=== PATIENT | female | born 1965 | race Caucasian/White ===

== ENCOUNTER 2023-10-05 13:02 | Inpatient (IN) | payer MEDICARE, OTHER ==
[~2023-10-05] VITALS: Ht 162.6 cm; Wt 136.1 kg
[2023-10-05 14:09] LABS: BASOPHILS # (AUTO) 0.1 K/uL (0.0-0.2); BASOPHILS % (AUTO) 1.8 % (0.0-2.0); EOSINOPHILS % (AUTO) 0.9 % (0.0-6.0); HEMATOCRIT 38 % (33-45); HEMOGLOBIN 12.4 g/dL (11.5-14.8); LYMPHOCYTES # (AUTO) 1.6 K/uL (0.8-4.8); LYMPHOCYTES % (AUTO) 30.4 % (20.0-44.0); MEAN CORPUSCULAR HEMOGLOBIN 28 PG (26.0-33.0); MEAN CORPUSCULAR HGB CONC 33 g/dl (31.0-36.0); MEAN CORPUSCULAR VOLUME 84 fL (82-100); MONOCYTES # (AUTO) 0.4 K/uL (0.1-1.30); MONOCYTES % (AUTO) 7.1 % (2.0-12.0); NEUTROPHILS # (AUTO) 3.2 K/uL (1.8-8.9); NEUTROPHILS % (AUTO) 59.8 % (43.0-81.0); PLATELET COUNT (AUTO) 319 K/uL (150-450); RED BLOOD CELL COUNT(AUTO) 4.48 MIL/uL (4.0-5.2); RED CELL DISTRIBUTION WIDTH 15.7 % (11.5-15.0); WHITE BLOOD COUNT (AUTO) 5.3 K/uL (4.3-11.0)
[2023-10-05 14:18] LABS: CALCIUM, SERUM 9.3 mg/dL (8.5-10.1); CREATININE 0.9 mg/dL (0.6-1.3); POTASSIUM 4.1 mmol/L (3.5-5.1)
[2023-10-05] MEDS ORDERED: HYDR25TA4 PO (14:28)
[2023-10-05] MEDS ORDERED: CALC-771 PO (14:28)
[2023-10-05] MEDS ORDERED: GABA600T12 PO (14:28)
[2023-10-05] MEDS ORDERED: DOCU100C58 PO (14:28)
[2023-10-05] MEDS ORDERED: GABA-532 PO (14:28)
[2023-10-05] MEDS ORDERED: LISI40TA13 PO (14:28)
[2023-10-05] MEDS ORDERED: METF-440 PO (14:28)
[2023-10-05] MEDS ORDERED: ATOR40TA PO (14:28)
[2023-10-05 14:31] LABS: INR 0.99 (0.91-1.10); PARTIAL THROMBOPLASTIN TIME 25.8 SEC (24.3-34.3); PROTHROMBIN TIME 10.5 SECS (9.2-11.1)
[2023-10-05] MEDS ORDERED: ALBU18HF2 IH (14:45)
[2023-10-05] MEDS ORDERED: MAG HYDROX/AL HYDROX/SIMETH 30 ML UDC PO PRN (16:00)
[2023-10-05] MEDS ORDERED: MAGNESIUM HYDROXIDE 30 ML UDC PO PRN (16:00)
[2023-10-05] MEDS ORDERED: ONDANSETRON HCL/PF 4 MG/2 ML VIAL IVP PRN (16:00)
[2023-10-05] MEDS ORDERED: Z GUARD REMEDY 4 OZ OINT TP PRN (16:00)
[2023-10-05] MEDS ORDERED: DEXTROSE 50%-WATER 50 ML DISP.SYRIN IV PRN (16:00)
[2023-10-05 16:32] VITALS: BP 161/106; TEMP 96.8; O2SAT 100
[2023-10-05] MEDS: GABAPENTIN 300 MG CAPSULE PO SCH (17:40)
[2023-10-05] MEDS: DOCUSATE SODIUM 100 MG CAPSULE PO SCH (17:40)
[2023-10-05] MEDS: BLOOD SUGAR DIAGNOSTIC 1 EACH STRIP VI SCH ×2 (17:40→21:34)
[2023-10-05] MEDS: INSULIN REGULAR, HUMAN 100 UNIT/ML 3 ML VIAL SQ PRN (17:41)
[2023-10-05 20:00] VITALS: BP 123/93; TEMP 98.2; O2SAT 98
[2023-10-05 20:03] LABS: APPEARANCE,URINE CLEAR (CLEAR); BILIRUBIN,URINE NEGATIVE (NEGATIVE); BLOOD, URINE TRACE-INTA Ery/uL (NEGATIVE); COLOR,URINE YELLOW (YELLOW); KETONES,URINE NEGATIVE (NEGATIVE); NITRITE, URINE NEGATIVE (NEGATIVE); PROTEIN,URINE NEGATIVE (NEGATIVE); UGLUCOSE NEGATIVE (NEGATIVE); UROBILINOGEN,URINE 0.2 EU/dL (0.2)
[2023-10-05 20:18] LABS: ADD URINE CULTURE NO; BACTERIA,URINE 1+ /HPF (None Seen); WBC,URINE 0-2 /HPF (0-3)
[2023-10-05 20:19] LABS: LEUKOCYTE ESTERASE ,URINE NEGATIVE (NEGATIVE)
[2023-10-06] MEDS: INSULIN REGULAR, HUMAN 100 UNIT/ML 3 ML VIAL SQ PRN (06:54)
[2023-10-06] MEDS: BLOOD SUGAR DIAGNOSTIC 1 EACH STRIP VI SCH ×4 (06:54→21:21)
[2023-10-06 07:10] LABS: BASOPHILS % (AUTO) 0.5 % (0.0-2.0); EOSINOPHILS # (AUTO) 0.1 K/uL (0.0-0.7); EOSINOPHILS % (AUTO) 1.5 % (0.0-6.0); HEMATOCRIT 34 % (33-45); HEMOGLOBIN 11.2 g/dL (11.5-14.8); LYMPHOCYTES # (AUTO) 2.3 K/uL (0.8-4.8); MEAN CORPUSCULAR HEMOGLOBIN 28 PG (26.0-33.0); MEAN CORPUSCULAR HGB CONC 33 g/dl (31.0-36.0); MEAN CORPUSCULAR VOLUME 84 fL (82-100); MONOCYTES # (AUTO) 0.4 K/uL (0.1-1.30); MONOCYTES % (AUTO) 7.4 % (2.0-12.0); NEUTROPHILS # (AUTO) 2.5 K/uL (1.8-8.9); NEUTROPHILS % (AUTO) 46.6 % (43.0-81.0); PLATELET COUNT (AUTO) 275 K/uL (150-450); RED BLOOD CELL COUNT(AUTO) 4.05 MIL/uL (4.0-5.2); RED CELL DISTRIBUTION WIDTH 15.6 % (11.5-15.0); WHITE BLOOD COUNT (AUTO) 5.3 K/uL (4.3-11.0)
[2023-10-06 07:26] LABS: ALBUMIN 2.9 g/dL (3.4-5.0); BILIRUBIN,TOTAL 0.3 mg/dL (0.2-1.0); CALCIUM, SERUM 8.9 mg/dL (8.5-10.1); CREATININE 0.9 mg/dL (0.6-1.3); PHOSPHORUS 3.4 mg/dL (2.5-4.9); POTASSIUM 3.5 mmol/L (3.5-5.1); TOTAL PROTEIN, SERUM 6.2 g/dL (6.4-8.2)
[2023-10-06 08:33] VITALS: BP 118/71; TEMP 98.1; O2SAT 97
[2023-10-06] MEDS ORDERED: GELATIN SPONGE,ABSORBABLE 1 EA SPONGE TP ONE (08:53)
[2023-10-06] MEDS ORDERED: ANESTHESIA TRAY IN PYXIS 1 EA TRAY MC ONE (08:53)
[2023-10-06] MEDS ORDERED: POLYMYXIN B SULFATE 500,000 UNITS ONE (08:53)
[2023-10-06] MEDS ORDERED: HEMOSTATIC MATRIX 8 ML 1 EACH PAD MC ONE (08:53)
[2023-10-06] MEDS ORDERED: GELATIN SPONGE,ABSORBABLE 1 SPONGE SPONGE TP ONE (08:54)
[2023-10-06] MEDS ORDERED: BUPIVACAINE 0.5 % PF 150 MG/30 ML VIAL ONE (08:54)
[2023-10-06] MEDS ORDERED: LIDOCAINE 1%-EPI 1:100,000 20 ML VIAL ONE (08:54)
[2023-10-06] MEDS ORDERED: CEFAZOLIN 1 GM ONE (08:54)
[2023-10-06] MEDS ORDERED: CELLULOSE,OXIDIZED 1 EACH EACH MC ONE (08:55)
[2023-10-06] MEDS ORDERED: CELLULOSE,OXIDIZED 1 EA PACK MC ONE (08:55)
[2023-10-06] MEDS ORDERED: THROMBIN (BOVINE) 5,000 UNITS VIAL TP ONE (08:55)
[2023-10-06] MEDS: DOCUSATE SODIUM 100 MG CAPSULE PO SCH ×2 (09:00→18:04)
[2023-10-06] MEDS: GABAPENTIN 300 MG CAPSULE PO SCH ×3 (09:00→18:05)
[2023-10-06] MEDS ORDERED: GABAPENTIN 100 MG CAPSULE PO SCH (09:00)
[2023-10-06] MEDS: LISINOPRIL (20MG) 20 MG TABLET PO SCH (09:00)
[2023-10-06] MEDS: HYDROCHLOROTHIAZIDE 25 MG TABLET PO SCH (09:00)
[2023-10-06] MEDS ORDERED: LIDOCAINE 5% OINT 35.44 GM TUBE ONE (10:24)
[2023-10-06] MEDS ORDERED: PANTOPRAZOLE 40 MG VIAL IV SCH (11:00)
[2023-10-06] MEDS ORDERED: DESFLURANE 240 ML BOTTLE IH ONE (11:12)
[2023-10-06] MEDS ORDERED: IOHEXOL 0 ML IV ONE (11:46)
[2023-10-06] MEDS ORDERED: LIDOCAINE 5% (PATCH) 1 EA PATCH TP ONE (12:15)
[2023-10-06] MEDS ORDERED: ONDANSETRON HCL/PF 4 MG/2 ML VIAL IV PRN (14:00)
[2023-10-06] MEDS ORDERED: HYDROMORPHONE 1 MG/1 ML DISP.SYRIN IV PRN ×2 (14:00)
[2023-10-06] MEDS ORDERED: METOCLOPRAMIDE HCL 10 MG/2 ML VIAL IV PRN (14:00)
[2023-10-06 14:49] VITALS: O2SAT 96
[2023-10-06] MEDS: ALBUTEROL FS 2.5 MG/3 ML VIAL.NEB NEB PRN ×2 (14:49→22:06)
[2023-10-06 14:58] VITALS: O2SAT 99
[2023-10-06 20:00] VITALS: BP 121/68; TEMP 98.1; O2SAT 100
[2023-10-06] MEDS: ANCEF 1 GM/50 ML D5W IV SCH ×2 (20:16)
[2023-10-06] MEDS: *INSULIN REGULAR(HUMULIN R)HUM 100 UNIT/ML VIAL SQ PRN (21:22)
[2023-10-06 22:07] VITALS: O2SAT 97
[2023-10-06 22:19] VITALS: O2SAT 99
[2023-10-07] MEDS: ANCEF 1 GM/50 ML D5W IV SCH ×4 (04:34→11:27)
[2023-10-07] MEDS: BLOOD SUGAR DIAGNOSTIC 1 EACH STRIP VI SCH ×4 (06:40→21:43)
[2023-10-07] MEDS: INSULIN REGULAR, HUMAN 100 UNIT/ML 3 ML VIAL SQ PRN (06:40)
[2023-10-07 07:27] LABS: BASOPHILS % (AUTO) 0.3 % (0.0-2.0); EOSINOPHILS # (AUTO) 0.1 K/uL (0.0-0.7); EOSINOPHILS % (AUTO) 0.8 % (0.0-6.0); HEMATOCRIT 32 % (33-45); HEMOGLOBIN 10.7 g/dL (11.5-14.8); LYMPHOCYTES # (AUTO) 1.3 K/uL (0.8-4.8); MEAN CORPUSCULAR HEMOGLOBIN 28 PG (26.0-33.0); MEAN CORPUSCULAR HGB CONC 33 g/dl (31.0-36.0); MEAN CORPUSCULAR VOLUME 84 fL (82-100); MONOCYTES # (AUTO) 0.4 K/uL (0.1-1.30); MONOCYTES % (AUTO) 5.9 % (2.0-12.0); NEUTROPHILS # (AUTO) 5.1 K/uL (1.8-8.9); PLATELET COUNT (AUTO) 266 K/uL (150-450); RED CELL DISTRIBUTION WIDTH 15.6 % (11.5-15.0); WHITE BLOOD COUNT (AUTO) 6.9 K/uL (4.3-11.0)
[2023-10-07 07:30] VITALS: BP 97/64; TEMP 98.8; O2SAT 97
[2023-10-07 07:57] LABS: CALCIUM, SERUM 8.8 mg/dL (8.5-10.1); CREATININE 0.9 mg/dL (0.6-1.3); POTASSIUM 3.7 mmol/L (3.5-5.1)
[2023-10-07] MEDS: DOCUSATE SODIUM 100 MG CAPSULE PO SCH ×2 (08:08→16:23)
[2023-10-07] MEDS: GABAPENTIN 300 MG CAPSULE PO SCH ×3 (08:09→16:23)
[2023-10-07] MEDS: LISINOPRIL (20MG) 20 MG TABLET PO SCH ×2 (09:00→09:13)
[2023-10-07] MEDS: HYDROCHLOROTHIAZIDE 25 MG TABLET PO SCH (09:12)
[2023-10-07] MEDS: PANTOPRAZOLE 40 MG TABLET.DR PO SCH (09:12)
[2023-10-07] MEDS ORDERED: ANESTHESIA TRAY IN PYXIS 1 EA TRAY MC ONE (12:14)
[2023-10-07 16:00] VITALS: BP 133/88; TEMP 98.6; O2SAT 98
[2023-10-07] MEDS: ACETAMINOPHEN 325 MG TABLET PO PRN ×2 (17:21→23:22)
[2023-10-07 20:33] VITALS: BP 142/99; TEMP 98.4; O2SAT 99
[2023-10-07] MEDS: *INSULIN REGULAR(HUMULIN R)HUM 100 UNIT/ML VIAL SQ PRN (21:43)
[2023-10-08] MEDS: BLOOD SUGAR DIAGNOSTIC 1 EACH STRIP VI SCH (07:38)
[2023-10-08] MEDS: ACETAMINOPHEN 325 MG TABLET PO PRN (08:10)
[2023-10-08] MEDS: GABAPENTIN 300 MG CAPSULE PO SCH (08:14)
[2023-10-08] MEDS: PANTOPRAZOLE 40 MG TABLET.DR PO SCH (08:14)
[2023-10-08] MEDS: DOCUSATE SODIUM 100 MG CAPSULE PO SCH (08:15)
[2023-10-08] MEDS: LISINOPRIL (20MG) 20 MG TABLET PO SCH (08:17)
[2023-10-08] MEDS: HYDROCHLOROTHIAZIDE 25 MG TABLET PO SCH (08:17)
[2023-10-08 08:37] VITALS: BP 133/86; TEMP 99.1; O2SAT 96
== END 2023-10-08 11:05 | disposition home or self-care (01) | DRG 460 ==
LOC: ER 13:06 → MED 13:57
PROVIDERS: ADMIT Internal Medicine; ATTEND Internal Medicine
PROC: 0SG704Z Fusion of Right Sacroiliac Joint with Internal Fixation Device, Open Approach (ICD-10-PCS; principal; 2023-10-06)
PROC: BR1DYZZ Fluoroscopy of Sacroiliac Joints using Other Contrast (ICD-10-PCS; 2023-10-06)
DX: M53.3 Sacrococcygeal disorders, not elsewhere classified (principal); Z68.43 Body mass index [BMI] 50.0-59.9, adult; M51.36 Other intervertebral disc degeneration, lumbar region; M47.816 Spondylosis without myelopathy or radiculopathy, lumbar region; I10 Essential (primary) hypertension; J45.909 Unspecified asthma, uncomplicated; E66.01 Morbid (severe) obesity due to excess calories; E78.5 Hyperlipidemia, unspecified; Z88.0 Allergy status to penicillin; E11.40 Type 2 diabetes mellitus with diabetic neuropathy, unspecified; Z79.84 Long term (current) use of oral hypoglycemic drugs
CPT/HCPCS: 36415; 71045-TC; 72220-TC; 80048-TC; 80053-TC; 81001; 82962-TC; 83735-TC; 84100-TC; 85025-TC; 85730-TC; 94799-TC; 97112-TC; 97116-TC; 97530-TC; A4223; C9113; G0378; J0330; J0690; J1815; J1885; J2405; J2704; J2765; J3490; J7050; J7060; Q9967

== ENCOUNTER 2023-11-04 07:09 | Inpatient (IN) | payer MEDICARE, OTHER ==
[~2023-11-04] VITALS: Ht 162.6 cm; Wt 136.5 kg
[~2023-11-04 07:09] MED LIST: ALBU18HF2 IH; ATOR40TA PO; CALC-771 PO; DOCU100C58 PO; GABA-532 PO; GABA600T12 PO; HYDR25TA4 PO; LISI40TA13 PO; METF-440 PO
[2023-11-04] MEDS ORDERED: IPRA12.9 IH (15:48)
[2023-11-04] MEDS ORDERED: EPIN0.3A4 IM (15:48)
[2023-11-04] MEDS ORDERED: LISI1TAB29 PO (15:48)
[2023-11-04 16:00] VITALS: BP 150/91; TEMP 97.7; O2SAT 99
[2023-11-04] MEDS ORDERED: ACETAMINOPHEN W/ CODEINE#3 1 EA TABLET PO PRN (17:00)
[2023-11-04] MEDS ORDERED: ALBUTEROL FS 2.5 MG/3 ML VIAL.NEB NEB PRN (17:00)
[2023-11-04] MEDS ORDERED: HOME MED MISCELLANEOUS XX SCH (17:00)
[2023-11-04] MEDS: DOCUSATE SODIUM 100 MG CAPSULE PO SCH (17:41)
[2023-11-04] MEDS: GABAPENTIN 300 MG CAPSULE PO SCH (17:41)
[2023-11-04 19:25] LABS: PARTIAL THROMBOPLASTIN TIME 25.6 SEC (24.3-34.3); PROTHROMBIN TIME 10.6 SECS (9.2-11.1)
[2023-11-04 19:31] LABS: ALBUMIN 3.3 g/dL (3.4-5.0); BILIRUBIN,TOTAL 0.3 mg/dL (0.2-1.0); CALCIUM, SERUM 9.4 mg/dL (8.5-10.1); POTASSIUM 3.8 mmol/L (3.5-5.1); TOTAL PROTEIN, SERUM 6.8 g/dL (6.4-8.2)
[2023-11-04 20:00] VITALS: BP 118/88; TEMP 97.7; O2SAT 99
[2023-11-04 20:29] LABS: APPEARANCE,URINE CLEAR (CLEAR); BILIRUBIN,URINE NEGATIVE (NEGATIVE); BLOOD, URINE NEGATIVE Ery/uL (NEGATIVE); COLOR,URINE YELLOW (YELLOW); KETONES,URINE NEGATIVE (NEGATIVE); LEUKOCYTE ESTERASE ,URINE NEGATIVE (NEGATIVE); NITRITE, URINE NEGATIVE (NEGATIVE); PH,URINE 6.5 (5.0-8.0); PROTEIN,URINE NEGATIVE (NEGATIVE); UGLUCOSE NEGATIVE (NEGATIVE)
[2023-11-04 20:42] LABS: ADD URINE CULTURE YES; BACTERIA,URINE Moderate /HPF (None Seen); RBC,URINE 0-2 /HPF (0-2); WBC,URINE NONE SEEN /HPF (0-3)
[2023-11-04 21:00] LABS: HEMATOCRIT 35 % (33-45); HEMOGLOBIN 11.6 g/dL (11.5-14.8); MEAN CORPUSCULAR HEMOGLOBIN 28 PG (26.0-33.0); WHITE BLOOD COUNT (AUTO) 6.5 K/uL (4.3-11.0)
[2023-11-04 21:13] LABS: BASOPHILS % (AUTO) 0.7 % (0.0-2.0); EOSINOPHILS # (AUTO) 0.1 K/uL (0.0-0.7); EOSINOPHILS % (AUTO) 2.1 % (0.0-6.0); LYMPHOCYTES # (AUTO) 2.4 K/uL (0.8-4.8); LYMPHOCYTES % (AUTO) 36.5 % (20.0-44.0); MEAN CORPUSCULAR HGB CONC 33 g/dl (31.0-36.0); MEAN CORPUSCULAR VOLUME 84 fL (82-100); MONOCYTES # (AUTO) 0.6 K/uL (0.1-1.30); MONOCYTES % (AUTO) 8.7 % (2.0-12.0); NEUTROPHILS # (AUTO) 3.4 K/uL (1.8-8.9); PLATELET COUNT (AUTO) 331 K/uL (150-450); RED BLOOD CELL COUNT(AUTO) 4.17 MIL/uL (4.0-5.2); RED CELL DISTRIBUTION WIDTH 15.6 % (11.5-15.0)
[2023-11-04] MEDS: ATORVASTATIN 40 MG TABLET PO SCH (22:22)
[2023-11-05] VITALS (7 sets, daily range): BP systolic 111–148; BP diastolic 47–92; TEMP 97.5–98.2; O2SAT 96–100
[2023-11-05] MEDS: CALCIUM CARB 600MG /VIT D 1 EACH TABLET PO SCH (08:58)
[2023-11-05] MEDS: HYDROCHLOROTHIAZIDE 25 MG TABLET PO SCH (09:00)
[2023-11-05] MEDS: LISINOPRIL (20MG) 20 MG TABLET PO SCH (09:00)
[2023-11-05] MEDS: IPRATROPIUM NEB FS 0.5 MG/2.5 ML AMPUL.NEB NEB SCH (09:09)
[2023-11-05] MEDS ORDERED: BUPIVACAINE 0.5 % PF 150 MG/30 ML VIAL ONE (09:11)
[2023-11-05] MEDS ORDERED: LIDOCAINE 1%-EPI 1:100,000 20 ML VIAL ONE (09:11)
[2023-11-05] MEDS ORDERED: POLYMYXIN B SULFATE 500,000 UNITS ONE (09:11)
[2023-11-05] MEDS ORDERED: VANCOMYCIN 1 GM VIAL ONE (09:12)
[2023-11-05] MEDS ORDERED: GELATIN SPONGE,ABSORBABLE 1 EA SPONGE TP ONE (09:13)
[2023-11-05] MEDS ORDERED: HEMOSTATIC MATRIX 8 ML 1 EACH PAD MC ONE (09:13)
[2023-11-05] MEDS ORDERED: CELLULOSE,OXIDIZED 1 EA PACK MC ONE (09:13)
[2023-11-05] MEDS ORDERED: LIDOCAINE 5% (PATCH) 1 EA PATCH TP ONE (09:14)
[2023-11-05] MEDS ORDERED: THROMBIN (BOVINE) 5,000 UNITS VIAL TP ONE (09:14)
[2023-11-05] MEDS ORDERED: IOHEXOL 240MG/ML 0 ML IV ONE (09:14)
[2023-11-05] MEDS ORDERED: CEFAZOLIN 1 GM ONE (09:17)
[2023-11-05] MEDS ORDERED: ROCURONIUM BROMIDE 50 MG/5 ML ONE (09:56)
[2023-11-05] MEDS ORDERED: FAMOTIDINE/PF INJ 20 MG/2 ML VIAL IV ONE (09:56)
[2023-11-05] MEDS ORDERED: TRANEXAMIC ACID 1,000 MG/10 ML VIAL ONE (09:56)
[2023-11-05] MEDS ORDERED: FENTANYL PF 100MCG/2ML AMPUL ONE (09:56)
[2023-11-05] MEDS ORDERED: MIDAZOLAM HCL 2 MG/2ML VIAL ONE (09:56)
[2023-11-05] MEDS ORDERED: DESFLURANE 240 ML BOTTLE IH ONE (10:47)
[2023-11-05] MEDS ORDERED: ONDANSETRON HCL/PF 4 MG/2 ML VIAL IV PRN (16:00)
[2023-11-05] MEDS ORDERED: METOCLOPRAMIDE HCL 10 MG/2 ML VIAL IV PRN (16:00)
[2023-11-05] MEDS ORDERED: HYDROMORPHONE 1 MG/1 ML DISP.SYRIN IV PRN ×2 (16:00)
[2023-11-05] MEDS: ANCEF 1 GM/50 ML D5W IV SCH (18:08)
[2023-11-06 08:00] VITALS: BP 101/56; TEMP 98.2; O2SAT 96
[2023-11-06 08:21] VITALS: BP 100/56
[2023-11-06] MEDS ORDERED: TRAM-351 PO (10:21)
== END 2023-11-06 14:34 | disposition home health service (06) | DRG 460 ==
LOC: MED 14:04
PROVIDERS: ADMIT Nurse Practitioner Acute Care; ATTEND Nurse Practitioner Acute Care
PROC: 0SG804Z Fusion of Left Sacroiliac Joint with Internal Fixation Device, Open Approach (ICD-10-PCS; principal; 2023-11-05)
PROC: BR1DYZZ Fluoroscopy of Sacroiliac Joints using Other Contrast (ICD-10-PCS; 2023-11-05)
DX: M53.3 Sacrococcygeal disorders, not elsewhere classified (principal); Z68.43 Body mass index [BMI] 50.0-59.9, adult; M47.16 Other spondylosis with myelopathy, lumbar region; E11.9 Type 2 diabetes mellitus without complications; E66.01 Morbid (severe) obesity due to excess calories; J45.909 Unspecified asthma, uncomplicated; M48.8X8 Other specified spondylopathies, sacral and sacrococcygeal region; M51.37 Other intervertebral disc degeneration, lumbosacral region; G89.29 Other chronic pain; I10 Essential (primary) hypertension; Z88.0 Allergy status to penicillin; Z98.84 Bariatric surgery status; Z90.710 Acquired absence of both cervix and uterus; E78.00 Pure hypercholesterolemia, unspecified
CPT/HCPCS: 36415; 71045-TC; 72110-TC; 80053-TC; 81001; 85025-TC; 85610-TC; 85730-TC; 86850-TC; 87081-TC; 87086-TC; A4223; A6253; A6403; C1713; C1769; G0378; J0690; J1100; J2250; J2405; J2704; J3010; J3370; J3490; J7030; J7050; J7060; Q9966